=== PATIENT | female | born 1990 | race Caucasian/White ===

== ENCOUNTER 2022-10-11 13:09 | Outpatient (CLI) | payer OTHER | END 2022-10-11 14:11 | disposition home or self-care (01) | LOC: NST 13:09 | PROVIDERS: ATTEND Obstetrics & Gynecology | DX: Z34.83 Encounter for supervision of other normal pregnancy, third trimester (principal) ==

== ENCOUNTER 2022-10-28 11:28 | Inpatient (IN) | payer OTHER ==
[~2022-10-28] VITALS: Ht 152.4 cm; Wt 3.2 kg
[2022-10-28] MEDS ORDERED: PRENATA CHEWAB1 EACH PO (11:54)
== END 2022-11-05 15:08 | disposition home or self-care (01) | DRG 788 ==
LOC: LDR 11-01 14:15 → O/R 11-02 12:09 → OB/GYN 11-02 16:15
PROVIDERS: Obstetrics & Gynecology Gynecology; ADMIT Obstetrics & Gynecology; ATTEND Obstetrics & Gynecology
PROC: 4A1HXCZ Monitoring of Products of Conception, Cardiac Rate, External Approach (ICD-10-PCS; 2022-11-01)
PROC: 10D00Z1 Extraction of Products of Conception, Low, Open Approach (ICD-10-PCS; principal; 2022-11-02 11:00)
DX: O34.33 Maternal care for cervical incompetence, third trimester (principal); O13.4 Gestational [pregnancy-induced] hypertension without significant proteinuria, complicating childbirth; Z3A.38 38 weeks gestation of pregnancy; Z37.0 Single live birth; Z20.822 Contact with and (suspected) exposure to COVID-19